=== PATIENT | female | born 1930 | race Caucasian/White ===

== ENCOUNTER 2016-04-25 16:39 | Emergency (ER) | payer OTHER, MEDICARE ==
[~2016-04-25] VITALS: Ht 152.4 cm; Wt 56.2 kg
[~2016-04-25 16:39] MED LIST: ADULT LOW DOSE81 MG PO; ALDACTONE25 MG PO; APAP PO; APAP500 PO; B12INJ IM; CENTRUM SILVER1 EAC4 PO; COLACE100 MG PO; COREG PO; COREG6.25 MG PO; K-DUR 20 MEQ T20 MEQ PO; LASIX 20 MG TAB20 MG PO; LASIX 40 MG TAB40 M1 PO; LEVAQUIN 500 M500 M2 PO; LEVOTHYROXIN0.025 MG PO; LEVOTHYROXINE0.2 M1 PO; LISINOPRIL PO; LISINOPRIL2.5 MG PO; NEURONTIN 300300 M1 PO; NEXIUM40 MG PO; PACERONE 200 M200 MG PO; PRADAXA150 MG PO; PROTONIX40 M1 PO; TYLENOL325 MG PO; ULTRAM 50MG TAB50 MG PO; VITAMIN D1000 UNI1 PO; VOLTAREN GEL 1100 G2 TOP; ZOCOR 20 MG TAB20 M1 PO; [UNRECOGNIZED DRUG - OTHER] PO; [UNRECOGNIZED DRUG - OTHER] PO
[2016-04-25 17:27] LABS: ABSOLUTE NEUTROPHILS 7.5 thou/uL (1.4-8.2); BASOPHILS 0.7 % (0.0-2.0); EOSINOPHILS 1.9 % (0.0-3.0); HEMATOCRIT 31.8 % (37.0-47.0); HEMOGLOBIN 10.4 gm/dL (12.0-15.0); LYMPHOCYTES 9.8 % (24.0-44.0); MCH 27.1 pg (26.0-34.0); MCHC 32.7 % (28.0-37.0); MCV 82.9 fL (80.0-100.0); MONOCYTES 6.7 % (1.0-8.0); PLATELET COUNT 222 thou/uL (150-400); POLYS 80.9 % (36.0-66.0); RBC 3.84 mil/uL (4.20-5.00); RDW 16.5 % (10.5-14.5); WBC 9.2 thou/uL (4.0-11.0)
[2016-04-25 17:35] LABS: CALCIUM 8.5 mg/dL (8.5-10.1); POTASSIUM 3.3 mmol/L (3.5-5.1)
[2016-04-25 17:36] LABS: MANUAL DIFF NO
[2016-04-25 17:41] LABS: ALBUMIN 2.5 g/dL (3.4-5.0); TOTAL BILIRUBIN 0.6 mg/dL (<0.1-1.0); TOTAL PROTEIN 5.5 g/dL (6.4-8.2)
[2016-04-25 17:44] LABS: APTT 48.4 Seconds (24.5-32.8); INR 1.5; PROTIME 15.8 Seconds (9.3-11.4)
[2016-04-25] MEDS ORDERED: CELEXA10 MG PO (18:03)
[2016-04-25] MEDS ORDERED: LASIX 40 MG TAB40 M2 PO (18:04)
[2016-04-25] MEDS ORDERED: GABAPENTIN 100100 MG PO (18:04)
[2016-04-25] MEDS ORDERED: K-DUR10 MEQ PO (18:05)
[2016-04-25] MEDS ORDERED: TYLENOL325 MG PO (18:07)
[2016-04-25] MEDS ORDERED: CYCLOBENZAPRINE5 MG PO (18:07)
== END 2016-04-25 19:00 | disposition home or self-care (01) ==
LOC: ER 16:39
PROVIDERS: Emergency Medicine
DX: N95.0 Postmenopausal bleeding (principal); I48.2 Chronic atrial fibrillation; L81.9 Disorder of pigmentation, unspecified; Z79.01 Long term (current) use of anticoagulants; Z88.5 Allergy status to narcotic agent; Z95.0 Presence of cardiac pacemaker